=== PATIENT | male | born 1995 | race Hispanic/Latino ===

== ENCOUNTER 2019-01-05 14:15 | Emergency (ER) | payer BC ==
--- NOTE | 2019-01-05 14:57 | ED PDOC ---
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 Per EMS, [place] [employer] called for a possible seizure stating that he was shaking for 1 min and became unconscious for a couple of seconds. EMS arrived 6 minutes later and state patient was answering questions appropriately and AOEX3. Patient states the last thing he remembers is leaving class, when he woke up he saw police officers surrounding him. He denies having similar symptoms in the past. He is currently taking Zoloft and Seroquel but no other medications. Tetanus is up to date. He denies any fever, chills, headache, tongue biting, chest pain, shortness of breath, nausea, vomit, dizziness, or other medical complaints. PMD: None provided. Past Medical History Reviewed: Historical Data, Nursing Documentation, Vital Signs Vital Signs: Last Vital Signs Temp 98.2 F 01/05/19 14:17 Pulse 125 H 01/05/19 14:17 Resp 16 01/05/19 14:17 BP 165/97 H 01/05/19 14:17 Pulse Ox 95 01/05/19 14:17 - Medical History PMH: Bipolar Disorder - Surgical History Surgical History: No Surg Hx - Family History Family History: States: Unknown Family Hx - Social History Current smoker - smoking cessation education provided: Yes (Electronic cigarretes) Alcohol: None Drugs: Denies - Immunization History Hx Tetanus Toxoid Vaccination: No Hx Influenza Vaccination: No Hx Pneumococcal Vaccination: No - Home Medications Home Medications: Ambulatory Orders Medication Instructions Recorded Amoxicillin/Clavulanate [Augmentin 1 tab PO BID #10 tab 01/05/19 500 MG-125 MG] Ibuprofen [Motrin Tab] 600 mg PO Q8 PRN #30 tab 01/05/19 - Allergies Allergies/Adverse Reactions: Allergies Allergy/AdvReac Type Severity Reaction Status Date / Time No Known Allergies Allergy Verified 01/05/19 14:17 Review of Systems ROS Statement: Except As Marked, All Systems Reviewed And Found Negative Constitutional: Negative for: Fever, Chills ENT: Negative for: Mouth Pain (tongue biting) Cardiovascular: Negative for: Chest Pain Respiratory: Negative for: Shortness of Breath Gastrointestinal: Negative for: Nausea, Vomiting Skin: Positive for: Other (facial abrasion ) Neurological: Positive for: Other (syncopal episode). Negative for: Headache, Dizziness Physical Exam - Reviewed Nursing Documentation Reviewed: Yes Vital Signs Reviewed: Yes - Physical Exam Appears: Positive for: No Acute Distress Head Exam: Positive for: ATRAUMATIC, NORMAL INSPECTION, NORMOCEPHALIC Skin: Positive for: Normal Color, Warm, Dry Eye Exam: Positive for: Normal appearance, EOMI, PERRL ENT: Positive for: Other (Abrasions to left maxilla and lower jaw but no deformity.) Neck: Positive for: Normal, Painless ROM Cardiovascular/Chest: Positive for: Regular Rate, Rhythm. Negative for: Murmur Respiratory: Positive for: Normal Breath Sounds. Negative for: Respiratory Distress Gastrointestinal/Abdominal: Positive for: Normal Exam, Soft. Negative for: Tenderness Back: Positive for: Normal Inspection. Negative for: L CVA Tenderness, R CVA Tenderness Extremity: Positive for: Normal ROM (upper and lower extremities). 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 Negative for: Lethargic, Motor/Sensory Deficits, Facial Droop - Laboratory Results Result Diagrams: 01/05/19 14:25 01/05/19 14:25 - ECG O2 Sat by Pulse Oximetry: 95 (RA) Pulse Ox Interpretation: Normal Medical Decision Making Medical Decision Making: Time: 14:28 Initial Impression: Syncopal episode Initial Plan: --Maxillofacial w/o contrast [CT] --Head w/o contrast [CT] --EKG --Alcohol serum --CMP --Drug screen, urine --Urine dipstick --CBC w/ differential --PTT --PT --Chest two views (PA/LAT) [RAD] --Reevaluation 15:00 -Patient to be signed out to Dr. Stubbs pending CTs and reevaluation. Scribe Attestation: Documented by Thang Veliz, acting as a scribe Karel Oliveros MD Provider Scribe Attestation: All medical record entries made by the Scribe were at my direction and personally dictated by me. I have reviewed the chart and agree that the record accurately reflects my personal performance of the history, physical exam, medical decision making, and the department course for this patient. I have also personally directed, reviewed, and agree with the discharge instructions and disposition. Disposition - Clinical Impression Clinical Impression: Syncope - Patient ED Disposition Is Patient to be Admitted: Transfer of Care - Disposition Disposition: Transfer of Care Disposition Time: 15:00 Condition: IMPROVED Additional Instructions: DRINK PLENTY OF HYDRATING FLUIDS AND REST FOLLOWUP WITH YOUR DOCTOR IN 2-3 DAYS FOR REEVALUATION AND REFERRAL TO [facility] FOR FOLLOWUP FOR FACIAL FRACTURE Prescriptions: Amoxicillin/Clavulanate [Augmentin 500 MG-125 MG] 1 tab PO BID #10 tab Ibuprofen [Motrin Tab] 600 mg PO Q8 PRN #30 tab PRN Reason: Pain, Moderate (4-7) Instructions: Syncope (Fainting) (DC), Minor Head Injury (DC), Skull and Facial Fractures (DC) Forms: [facility] ED School/Work Excuse Patient Signed Over To: Irma Stubbs
[2019-01-05 15:04] LABS: PROTHROMBIN TIME 11.3 Seconds (9.8-13.1)
[2019-01-05 15:07] LABS: PARTIAL THROMBOPLASTIN TIME 35.5 Seconds (25.6-37.1)
--- NOTE | 2019-01-05 15:17 | RAD ---
Date of service: 01/05/2019 HISTORY: Syncope COMPARISON: No prior. TECHNIQUE: Chest PA and lateral views two views FINDINGS: LUNGS: No active pulmonary disease. PLEURA: No significant pleural effusion identified. No pneumothorax apparent. CARDIOVASCULAR: No aortic atherosclerotic calcification present. Normal cardiac size. No pulmonary vascular congestion. OSSEOUS STRUCTURES: No significant abnormalities. VISUALIZED UPPER ABDOMEN: Normal. OTHER FINDINGS: None. IMPRESSION: No active disease.
[2019-01-05 15:21] LABS: ALB/GLOB RATIO 1.4 (1.0-2.1); ALBUMIN 5.1 g/dL (3.5-5.0); ALT/SGPT 136 U/L (21-72); AST/SGOT 124 U/L (17-59); BLOOD UREA NITROGEN 16 mg/dl (9-20); CALCIUM 9.8 mg/dL (8.4-10.2); GFR NON-AFRICAN AMERICAN > 60
--- NOTE | 2019-01-05 15:43 | CT ---
Date of service: 01/05/2019 PROCEDURE: CT HEAD WITHOUT CONTRAST. HISTORY: Syncope COMPARISON: Not available TECHNIQUE: Axial computed tomography images were obtained through the head/brain without intravenous contrast. Radiation dose: Total exam DLP = 889.56 mGy-cm. This CT exam was performed using one or more of the following dose reduction techniques: Automated exposure control, adjustment of the mA and/or kV according to patient size, and/or use of iterative reconstruction technique. FINDINGS: HEMORRHAGE: No intracranial hemorrhage. BRAIN: No mass effect or edema. No atrophy or chronic microvascular ischemic changes. VENTRICLES: Unremarkable. No hydrocephalus. CALVARIUM: Unremarkable. PARANASAL SINUSES: There is fluid in the left maxillary antrum. There is mucoperiosteal thickening seen in the left sphenoid sinus. Nonspecific. MASTOID AIR CELLS: Unremarkable as visualized. No inflammatory changes. OTHER FINDINGS: None. IMPRESSION: No intracranial hemorrhage. Fluid in left maxillary antrum. Mucoperiosteal thickening in sphenoid sinus.
--- NOTE | 2019-01-05 15:47 | CT ---
Date of service: 01/05/2019 PROCEDURE: CT MAXILLOFACIAL BONES WITHOUT CONTRAST HISTORY: L facial injury COMPARISON: Not available TECHNIQUE: Contiguous axial CT images of the maxillofacial bones were obtained. Coronal and sagittal reformats were generated. Radiation dose: Total exam DLP = 759.58 mGy-cm. This CT exam was performed using one or more of the following dose reduction techniques: Automated exposure control, adjustment of the mA and/or kV according to patient size, and/or use of iterative reconstruction technique. FINDINGS: NASAL BONES: Unremarkable. ORBITS: There is a nondisplaced fracture of the left inferior orbital rim. There is no arti orbital floor fracture. The lamina papyracea is intact bilaterally. There is no intraorbital hemorrhage. The globes are rounded and symmetric. PARANASAL SINUSES/ MASTOIDS: There is dependent fluid within the left maxillary antrum, consistent with blood associated with the inferior orbital rim fracture. There is a small amount of fluid or mucoperiosteal thickening also seen in the sphenoid sinus on the left side. MAXILLA: Unremarkable. MANDIBLE/ TEMPOROMANDIBULAR JOINTS: Unremarkable. SKULL BASE: Unremarkable. TEMPORAL BONES: Middle ears and mastoid grossly unremarkable. OTHER FINDINGS: Focal soft tissue contusion over the left zygoma. IMPRESSION: Nondisplaced left inferior orbital rim fracture. Fluid in left maxillary antrum and likely in sphenoid sinus. No intraorbital hemorrhage. Otherwise unremarkable examination.
[2019-01-05 15:54] LABS: BASO % 0.4 % (0.0-2.0); EOS # 0.1 K/uL (0.0-0.7); EOS % 0.8 % (0.0-4.0); LYMPH % 27.8 % (20.0-40.0); MEAN CORPUSCULAR HEMOGLOBIN 30.1 pg (27.0-31.0); MEAN PLATELET VOLUME 7.7 fl (7.2-11.7); MONO # 1.1 K/uL (0.0-0.8); MONO % 10.1 % (0.0-10.0); NEUT # 6.6 K/uL (1.8-7.0); NEUT % 60.9 % (50.0-75.0); NRBC % 0.1 % (0.0-0.0); RBC 5.31 Mil/uL (4.40-5.90); RED CELL DISTRIBUTION WIDTH 13.1 % (11.5-14.5); WHITE BLOOD COUNT 10.9 K/uL (4.8-10.8)
--- NOTE | 2019-01-05 16:14 | ED PDOC ---
- Laboratory Results Result Diagrams: 01/05/19 14:25 01/05/19 14:25 Lab Results: PT 11.3 Seconds (9.8-13.1) 01/05/19 14:25 INR 1.0 01/05/19 14:25 APTT 35.5 Seconds (25.6-37.1) 01/05/19 14:25 Total Bilirubin 0.6 mg/dl (0.2-1.3) 01/05/19 14:25 AST 124 U/L (17-59) H 01/05/19 14:25 ALT 136 U/L (21-72) H 01/05/19 14:25 Alkaline Phosphatase 97 U/L (38-126) 01/05/19 14:25 Total Protein 8.7 G/DL (6.3-8.2) H 01/05/19 14:25 Albumin 5.1 g/dL (3.5-5.0) H 01/05/19 14:25 Globulin 3.6 gm/dL (2.2-3.9) 01/05/19 14:25 Albumin/Globulin Ratio 1.4 (1.0-2.1) 01/05/19 14:25 - ECG O2 Sat by Pulse Oximetry: 95 (RA) Medical Decision Making Medical Decision Makin:00 Patient endorsed to provider by Dr. Oliveros. Patient pending ER work up, reassessment and final ER disposition. Accession No. : [id number] Patient Name / ID : TRESSA Barroso / [id number] Exam Date : 01/05/2019 15:26:11 ( Approved ) Study Comment : Sex / Age : M / 23Y Creator : Roosevelt Chapman MD Dictator : Roosevelt Chapman MD [employer] Fe[employer] : Obstetrics Nurse : Roosevelt Chapman MD Approver2 : Report Date : 01/05/2019 15:40:04 My Comment : Date of service: 01/05/2019 PROCEDURE: CT HEAD WITHOUT CONTRAST. HISTORY: Syncope COMPARISON: Not available TECHNIQUE: Axial computed tomography images were obtained through the head/brain without intravenous contrast. Radiation dose: Total exam DLP = 889.56 mGy-cm. This CT exam was performed using one or more of the following dose reduction techniques: Automated exposure control, adjustment of the mA and/or kV according to patient size, and/or use of iterative reconstruction technique. FINDINGS: HEMORRHAGE: No intracranial hemorrhage. BRAIN: No mass effect or edema. No atrophy or chronic microvascular ischemic changes. VENTRICLES: Unremarkable. No hydrocephalus. CALVARIUM: Unremarkable. PARANASAL SINUSES: There is fluid in the left maxillary antrum. There is mucoperiosteal thickening seen in the left sphenoid sinus. Nonspecific. MASTOID AIR CELLS: Unremarkable as visualized. No inflammatory changes. OTHER FINDINGS: None. IMPRESSION: No intracranial hemorrhage. Fluid in left maxillary antrum. Mucoperiosteal thickening in sphenoid sinus. Accession No. : [id number] Patient Name / ID : TRESSA AGUAYO D / [id number] Exam Date : 01/05/2019 15:28:21 ( Approved ) Study Comment : Sex / Age : M / 23Y Creator : Roosevelt Chapman MD Dictator : Roosevelt Chapman MD [employer] : Obstetrics Nurse : Roosevelt Chapman MD Approver2 : Report Date : 01/05/2019 15:44:32 My Comment : Date of service: 01/05/2019 PROCEDURE: CT MAXILLOFACIAL BONES WITHOUT CONTRAST HISTORY: L facial injury COMPARISON: Not available TECHNIQUE: Contiguous axial CT images of the maxillofacial bones were obtained. Coronal and sagittal reformats were generated. Radiation dose: Total exam DLP = 759.58 mGy-cm. This CT exam was performed using one or more of the following dose reduction techniques: Automated exposure control, adjustment of the mA and/or kV according to patient size, and/or use of iterative reconstruction technique. FINDINGS: NASAL BONES: Unremarkable. ORBITS: There is a nondisplaced fracture of the left inferior orbital rim. There is no arti orbital floor fracture. The lamina papyracea is intact bilaterally. There is no intraorbital hemorrhage. The globes are rounded and symmetric. PARANASAL SINUSES/ MASTOIDS: There is dependent fluid within the left maxillary antrum, consistent with blood associated with the inferior orbital rim fracture. There is a small amount of fluid or mucoperiosteal thickening also seen in the sphenoid sinus on the left side. MAXILLA: Unremarkable. MANDIBLE/ TEMPOROMANDIBULAR JOINTS: Unremarkable. SKULL BASE: Unremarkable. TEMPORAL BONES: Middle ears and mastoid grossly unremarkable. OTHER FINDINGS: Focal soft tissue contusion over the left zygoma. IMPRESSION: Nondisplaced left inferior orbital rim fracture. Fluid in left maxillary antrum and likely in sphenoid sinus. No intraorbital hemorrhage. Otherwise unremarkable examination. Labs unremarkable. DW patient and parents at length findings and plan of care. They report multiple factors that may have contributed to syncopal episode today: alcohol intake last night, psychiatric medications, hunger, poor recent sleep, new job-related stress. Advised rest, hydration, improve self-care, and avoid stress for next week, as well as avoid contact sports for a week. Followup with pmd and [facility] also advised. STable for discharge. Scribe Attestation: Documented by Thang Veliz, acting as a scribe Kale Stubbs MD Provider Scribe Attestation: All medical record entries made by the Scribe were at my direction and personally dictated by me. I have reviewed the chart and agree that the record accurately reflects my personal performance of the history, physical exam, medical decision making, and the department course for this patient. I have also personally directed, reviewed, and agree with the discharge instructions and disposition. Disposition Counseled Patient/Family Regarding: Studies Performed, Diagnosis, Need For Followup - Clinical Impression Clinical Impression: Syncope - POA Present On Arrival: Falls Or Trauma - Disposition Disposition: Routine/Home Disposition Time: 16:38 Condition: IMPROVED Additional Instructions: DRINK PLENTY OF HYDRATING FLUIDS AND REST FOLLOWUP WITH YOUR DOCTOR IN 2-3 DAYS FOR REEVALUATION AND REFERRAL TO [facility] FOR FOLLOWUP FOR FACIAL FRACTURE Prescriptions: Amoxicillin/Clavulanate [Augmentin 500 MG-125 MG] 1 tab PO BID #10 tab Ibuprofen [Motrin Tab] 600 mg PO Q8 PRN #30 tab PRN Reason: Pain, Moderate (4-7) Instructions: Syncope (Fainting) (DC), Minor Head Injury (DC), Skull and Facial Fractures (DC) Forms: [facility] ED School/Work Excuse
[2019-01-05] MEDS ORDERED: Bacitracin 500 Units/gm Oint Foilpak UD TOP STA (17:08)
[2019-01-05] MEDS ORDERED: Bacitracin Ointment 30 GM TUBE ONE (17:09)
[2019-01-05 17:25] VITALS: BP 134/84; RESP 20
[2019-01-05 17:30] VITALS: PULSE 98; TEMP 98
[2019-01-05 17:43] VITALS: O2SAT 95
--- NOTE | 2019-01-06 09:20 | CARD ---
APPROVED REPORT Date of service: 01/05/2019 EKG Measurement Heart [id number] <Conclusion> Sinus tachycardia Otherwise normal ECG
== END 2019-01-05 17:28 | disposition home or self-care (01) ==
LOC: H.ER 14:15
DX: R55 Syncope and collapse (principal); S09.93XA Unspecified injury of face, initial encounter; W19.XXXA Unspecified fall, initial encounter; Y92.89 Other specified places as the place of occurrence of the external cause; F31.9 Bipolar disorder, unspecified; F17.200 Nicotine dependence, unspecified, uncomplicated
CPT/HCPCS: 70450; 70486; 71046; 80053; 82948; 85025; 85610; 85730; 93005; 99285; G0480